=== PATIENT | male | born 1975 | race Hispanic/Latino ===

== ENCOUNTER 2018-08-23 07:16 | Day surgery (SDC) | payer OTHER ==
[2018-08-20 09:49] LABS: Absolute Lymphocytes (CBC) 2.2 K/uL (0.7-4.9); Absolute Monocytes 0.4 K/uL (0.1-1.3); Absolute Neutrophil 3.7 K/uL (1.8-8.0); Basophils % 0.6 % (0-1.3); Eosinophils % 1.5 % (0-4.4); Hematocrit 46.8 % (39.6-49.0); Lymphocytes % 33.3 % (15.3-44.8); MPV 9.9 fL (7.6-11.3); Monocytes % 6.8 % (3.3-12.3); RBC Red Blood Cell Count 5.25 M/uL (4.33-5.43)
[2018-08-20 10:11] LABS: BUN Blood Urea Nitrogen 9 mg/dL (7-18); Bicarbonate 31 mmol/L (21-32); Glucose Level 92 mg/dL (74-106); Potassium 4.2 mmol/L (3.5-5.1); Sodium Level 144 mmol/L (136-145)
--- NOTE | 2018-08-20 10:16 | RAD REPORT ---
EXAM DESCRIPTION: RAD - Chest Pa And Lat (2 Views) - 08/20/2018 9:26 am CLINICAL HISTORY: Preop chest, pending soft tissue mass removal from the ear, smoking history COMPARISON: None. TECHNIQUE: PA and lateral views of the chest were obtained. FINDINGS: The lungs are clear. Heart size is normal and central vasculature is within normal limit s. No pleural effusion or pneumothorax seen. No acute bony finding noted. No aortic abnormality. IMPRESSION: No acute cardiopulmonary process.
--- NOTE | 2018-08-20 21:19 | EKG ---
Test Date: 2018-08-20 Test Time: 09:16:20 [employer]: LARRY MEASUREMENT RESULTS: Intervals: Rate: 72 ID: [id number] QRSD: 88 QT: 374 QTc: 409 Natalia: P: 23 ID: [id number] QRS: 27 T: 32 INTERPRETIVE STATEMENTS: Normal sinus rhythm Normal ECG Compared to ECG 02/05/2015 19:13:22 No significant changes Electronically Signed On 08-20-18 21:17:48 CDT by Jaime Duncan
[2018-08-23] MEDS ORDERED: Ringers Lactate 1,000 ML IV ONE (07:53)
[2018-08-23] MEDS ORDERED: BUPIVACAINE 0.5% PF 10 ML VIAL ONE (08:26)
[2018-08-23] MEDS ORDERED: MIDAZOLAM HCL 2 MG/2 ML INJ ONE (08:30)
[2018-08-23] MEDS ORDERED: CEFAZOLIN/SWI 1gm 1 GM/10 ML SYR ONE (08:34)
[2018-08-23] MEDS ORDERED: LIDOCAINE 1% MPF 5 ML VIAL ONE (08:38)
[2018-08-23] MEDS ORDERED: FENTANYL CITR 100 MCG/2 ML ONE ×2 (08:38→08:59)
[2018-08-23] MEDS ORDERED: PROPOFOL 200 MG/20 ML VIAL IV ONE (08:38)
[2018-08-23] MEDS ORDERED: ONDANSETRON 4 MG/2 ML VIAL ONE (09:00)
--- NOTE | 2018-08-23 09:05 | P.BOP ---
Preoperative diagnosis: left posterior ear subQ mass with hx of recurrent infections Postoperative diagnosis: same Primary procedure: Wide excision of left posterior ear subQ mass 3x3cm Estimated blood loss: <5cc Specimen: mass Findings: mass Anesthesia: General Complications: None Transferred to: Recovery Room Condition: Good
[2018-08-23] MEDS ORDERED: CODEINE 30MG/APAP 300MG TAB ONE (10:45)
--- NOTE | 2018-08-23 20:41 | OP ---
Surgeon: Duc Milan MD Preoperative Diagnoses: Left posterior ear subcutaneous mass with history of recurrent infections. Postoperative Diagnoses: Left posterior ear subcutaneous mass with history of recurrent infections. Procedure Performed: Wide excision of left posterior ear subcutaneous mass, 3 x 3 cm. Anesthesia: General. Complications: None. Indications: This is a case of a 42-year-old patient with a mass in the posterior ear increasing in size and discomfort. Every now and then putting out some purulent discharge with infection. Says it started again, so he wanted that excised. Benefits, alternatives, and risks of excision were fully explained, which include but are not limited to infection, bleeding, damage to adjacent structures, a nesthesia complication, recurrence, abscess, seromas, NC and even . He also understands this ma y not relieve any symptoms. He might need more than one surgical intervention. He understood, rosa d a consent. The area of concern was marked by me on the patient in the holding room. Description Of Procedure: The patient was brought to the operating room, placed in supine position. Anesthesia was done without complication. Left posterior ear was prepped and draped in a sterile fa shion. A sharp incision was made in the skin to include part of the skin attached to this mass. Inc ision was carried down to deep subcutaneous tissue until we find muscle. The mass was completely exc ised. The area was irrigated. Hemostasis was obtained and then after injecting local anesthetic and checking for hemostasis, then after that, we proceeded to close deep layers with 3-0 chromic and the n the skin in running fashion 4-0 nylon. The patient tolerated the procedure well. The patient was sent to recovery in stable condition. Diagnosis: Left posterior ear subcutaneous mass with procedure of excision of left posterior ear sub cutaneous mass. Disposition: Home. Activity: As tolerated. No heavy lifting. Followup: Follow up in my office in 1 week. Call for appointment [phone]. Medications: Includes Tylenol No. 3 q.4 hours p.r.n. pain, Bactrim DS p.o. b.i.d. DANIEL/MODL Voice ID: [id number] Report ID: [id number]
== END 2018-08-23 11:05 | disposition home or self-care (01) ==
LOC: OR 07:16
PROVIDERS: ATTEND Surgery
PROC: 09T Ear, Nose, Sinus, Resection (ICD-10-PCS; principal; 2018-08-23 08:30)
DX: L72.0 Epidermal cyst (principal); F17.210 Nicotine dependence, cigarettes, uncomplicated; Z80.51 Family history of malignant neoplasm of kidney; Z80.8 Family history of malignant neoplasm of other organs or systems; Z83.3 Family history of diabetes mellitus
CPT/HCPCS: 36415; 71046; 80048; 85025; 88304; 88305; 93005; J0690; J2250; J2405; J2704; J3010